=== PATIENT | female | born 1975 | race Caucasian/White ===

== ENCOUNTER 2017-03-10 11:28 | Emergency (ER) | payer MEDICAID ==
[2017-03-10 11:34] VITALS: BP 116/80; PULSE 89; RESP 16; TEMP 98; O2SAT 100
[2017-03-10 11:35] VITALS: BMI 34.5
--- NOTE | 2017-03-10 12:06 | ED PDOC ---
HPI: Female Pain Time Seen by Provider: 03/10/17 11:50 Chief Complaint (Nursing): Female Genitourinary Chief Complaint (Provider): vaginitis History Per: Patient (42 y/o female IDDM here with vaginal discharge/itching associated with dysuria today. Patient deneis any abdominal pain/back pain/ vomiting.) Past Medical History Reviewed: Historical Data, Nursing Documentation, Vital Signs Vital Signs: Last Vital Signs Temp 98.0 F 03/10/17 11:34 Pulse 89 03/10/17 11:34 Resp 16 03/10/17 11:34 BP 116/80 03/10/17 11:34 Pulse Ox 100 03/10/17 11:34 - Medical History PMH: Diabetes - Family History Family History: States: No Known Family Hx - Home Medications Home Medications: Ambulatory Orders Medication Instructions Recorded Fluconazole [Diflucan] 150 mg PO Q72 #3 tab 03/21/15 Fluconazole [Diflucan] 150 mg PO ONCE PRN #1 tab 03/10/17 Miconazole Nitrate [Monistat 3] 1 each VG DAILY #1 kit 03/10/17 - Allergies Allergies/Adverse Reactions: Allergies Allergy/AdvReac Type Severity Reaction Status Date / Time No Known Allergies Allergy Verified 03/21/15 20:08 Review of Systems ROS Statement: Except As Marked, All Systems Reviewed And Found Negative Genitourinary Female: Positive for: Dysuria, Vaginal Discharge Physical Exam - Reviewed Nursing Documentation Reviewed: Yes Vital Signs Reviewed: Yes - Physical Exam Appears: Positive for: Well, Non-toxic, No Acute Distress Head Exam: Positive for: ATRAUMATIC, NORMAL INSPECTION, NORMOCEPHALIC Skin: Positive for: Normal Color, Warm, DRY Eye Exam: Positive for: EOMI, Normal appearance, PERRL ENT: Positive for: Normal ENT Inspection Neck: Positive for: Normal, Painless ROM Cardiovascular/Chest: Positive for: Regular Rate, Rhythm Respiratory: Positive for: CNT, Normal Breath Sounds Gastrointestinal/Abdominal: Positive for: Normal Exam, Bowel Sounds, Soft Pelvic Exam: Positive for: Discharge (moderate thick whitich vaginal discharge. Cervix wnl; ). Negative for: Tender Adnexa Back: Positive for: Normal Inspection Extremity: Positive for: Normal ROM Neurologic/Psych: Positive for: Alert, Oriented - Laboratory Results Urine POC: Negative - ECG O2 Sat by Pulse Oximetry: 100 - Progress ED Course And Treament: Accrupert 195 GC sent Disposition - Clinical Impression Clinical Impression: Yeast infection - Patient ED Disposition Is Patient to be Admitted: No - Disposition Disposition: Routine/Home Disposition Time: 13:41 Condition: FAIR Prescriptions: Fluconazole [Diflucan] 150 mg PO ONCE PRN #1 tab PRN Reason: Itching / Pruritus Miconazole Nitrate [Monistat 3] 1 each VG DAILY #1 kit Instructions: Vulvovaginal Candidiasis (ED) Forms: [employer] (Libyan)
[2017-03-10 13:29] LABS: RBC URINE 1 /hpf (0-3); URINE BILIRUBIN NEGATIVE (NEGATIVE); URINE BLOOD NEGATIVE (NEGATIVE); URINE COLOR STRAW (YELLOW); URINE GLUCOSE (UA) >=500 mg/dL (Normal); URINE KETONE NEGATIVE (NEGATIVE); URINE LEUKOCYTE ESTERASE TRACE Leu/uL (Negative); URINE PROTEIN NEGATIVE (NEGATIVE); URINE UROBILINOGEN 0.2-1.0 mg/dL (0.2-1.0)
[2017-03-10 13:32] LABS: URINE BACTERIA FEW (<OCC); WBC URINE 6 /hpf (0-5)
== END 2017-03-10 13:43 | disposition home or self-care (01) ==
LOC: H.ER 11:28
DX: B37.9 Candidiasis, unspecified (principal)

== ENCOUNTER 2018-01-10 18:17 | Emergency (ER) | payer MEDICAID ==
[2018-01-10 18:17] VITALS: BMI 34.5
[2018-01-10 18:29] VITALS: O2SAT 97
--- NOTE | 2018-01-10 19:38 | ED PDOC ---
HPI: Chest Pain Time Seen by Provider: 01/10/18 19:16 Chief Complaint (Nursing): Chest Pain Chief Complaint (Provider): Chest Pain History Per: Patient History/Exam Limitations: no limitations Onset/Duration Of Symptoms: Hrs Current Symptoms Are (Timing): Still Present (slightly improved) Quality: Pressure Additional Complaint(s): Caridad Dorsey is a 42 year old female with a past medical history of diabetes who is presenting to the ED for evaluation of difficulty breathing with associated chest pressure and palpitations onset a few hours ago. Patient states that she has been feeling some improvement in symptoms upon arrival to the ED and reports that she checked her sugar at 10:30 this morning and it was 245. She stats that she taking both pills and injections for her diabetes and last visited her PMD in August. Patient denies any recent travel, leg pain or swelling, calf pain/swelling, fevers, nausea, and vomiting. PMD: Alecia Lopez Past Medical History Reviewed: Historical Data, Nursing Documentation, Vital Signs Vital Signs: Last Vital Signs Temp 100.0 F H 01/10/18 18:27 Pulse 87 01/10/18 19:42 Resp 16 01/10/18 18:27 BP 112/80 01/10/18 18:27 Pulse Ox 97 01/10/18 19:42 - Medical History PMH: Diabetes - Surgical History Surgical History: No Surg Hx - Family History Family History: States: Unknown Family Hx - Social History Current smoker - smoking cessation education provided: No Alcohol: None Drugs: Denies - Home Medications Home Medications: Ambulatory Orders Medication Instructions Recorded Fluconazole [Diflucan] 150 mg PO Q72 #3 tab 03/21/15 Fluconazole [Diflucan] 150 mg PO ONCE PRN #1 tab 03/10/17 Miconazole Nitrate [Monistat 3] 1 each VG DAILY #1 kit 03/10/17 - Allergies Allergies/Adverse Reactions: Allergies Allergy/AdvReac Type Severity Reaction Status Date / Time No Known Allergies Allergy Verified 01/10/18 18:27 LALO Risk Score for UA/NSTEMI - LALO Risk Score Age > 64: NO 3 or more CAD Risk Factors: NO Known CAD (Stenosis greater than 50%): NO Aspirin use in past 7 days: NO Severe Angina: NO EKG ST changes greater than 0.5mm: NO Positive Cardiac Marker: NO LALO Score: 0 Risk %: 5% Wells Criteria for PE - Wells Criteria for Pulmonary Embolism Clinical Signs and Symptoms of DVT: No P.E is #1 Diagnosis, or Equally Likely: No Heart Rate >100: No Immobilization at least 3 days;Surgery previous 4 weeks: No Previous, objectively diagnosed PE or DVT: No Hemoptysis: No Malignancy w/treatment within 6 months, or palliative: No Total Score: 0 Review of Systems ROS Statement: Except As Marked, All Systems Reviewed And Found Negative Constitutional: Negative for: Fever Cardiovascular: Positive for: Chest Pain (pressure), Palpitations Respiratory: Positive for: Other (difficulty breathing) Gastrointestinal: Negative for: Nausea, Vomiting Musculoskeletal: Negative for: Leg Pain, Other (calf pain, swelling) Physical Exam - Reviewed Nursing Documentation Reviewed: Yes Vital Signs Reviewed: Yes - Physical Exam Appears: Positive for: Non-toxic, No Acute Distress Head Exam: Positive for: ATRAUMATIC, NORMAL INSPECTION, NORMOCEPHALIC Skin: Positive for: Normal Color, Warm, DRY Eye Exam: Positive for: EOMI, Normal appearance, PERRL ENT: Positive for: Normal ENT Inspection Neck: Positive for: Normal, Painless ROM Cardiovascular/Chest: Positive for: Regular Rate, Rhythm. Negative for: Murmur Respiratory: Positive for: Normal Breath Sounds. Negative for: Respiratory Distress Gastrointestinal/Abdominal: Positive for: Normal Exam, Soft. Negative for: Tenderness Back: Positive for: Normal Inspection. Negative for: L CVA Tenderness, R CVA Tenderness Extremity: Positive for: Normal ROM. Negative for: Pedal Edema, Calf Tenderness , Deformity, Swelling Neurologic/Psych: Positive for: Alert, Oriented. Negative for: Motor/Sensory Deficits - Laboratory Results Result Diagrams: 01/10/18 20:19 01/10/18 20:19 - ECG ECG Rhythm: Positive for: Normal QRS, Normal ST Segment, Sinus Rhythm Rate: 87 O2 Sat by Pulse Oximetry: 97 (RA) Pulse Ox Interpretation: Normal Medical Decision Making Medical Decision Making: Time: 19:38 Plan: --CMP --Troponin --CBC 23:15 --Upon reevaluation, patient reports an improvement in symptoms and is stable. She will be discharged home. Follow up with PMD in 1-2 days. Scribe Attestation: Documented by Catherine Noel, acting as a scribe for Messi Wood MD. Provider Scribe Attestation: All medical record entries made by the Scribe were at my direction and personally dictated by me. I have reviewed the chart and agree that the record accurately reflects my personal performance of the history, physical exam, medical decision making, and the department course for this patient. I have also personally directed, reviewed, and agree with the discharge instructions and disposition. Disposition - Clinical Impression Clinical Impression: Palpitations - Patient ED Disposition Is Patient to be Admitted: No - Disposition Disposition: Routine/Home Disposition Time: 23:15 Condition: IMPROVED Additional Instructions: follow up with your primary doctor dr lpoez in 1-2 days return to the ED with any worsening or concerning symptoms Instructions: Palpitations (DC) Forms: [employer] (Albanian)
[2018-01-10 20:45] LABS: BASO # 0.1 K/uL (0.0-0.2); BASO % 1.2 % (0.0-2.0); EOS # 0.2 K/uL (0.0-0.7); EOS % 2.1 % (0.0-4.0); HEMOGLOBIN 13.1 g/dL (12.0-16.0); LYMPH # 3.2 K/uL (1.0-4.3); LYMPH % 36.6 % (20.0-40.0); MEAN CELL VOLUME 82.5 fl (81.0-99.0); MEAN CORPUSCULAR HEMOGLOBIN 27.4 pg (27.0-31.0); MEAN CORPUSCULAR HGB CONC 33.2 g/dL (33.0-37.0); MEAN PLATELET VOLUME 8.6 fl (7.2-11.7); MONO # 0.7 K/uL (0.0-0.8); MONO % 7.8 % (0.0-10.0); NEUT # 4.5 K/uL (1.8-7.0); NEUT % 52.3 % (50.0-75.0); NRBC % 0.2 % (0.0-0.0); RBC 4.8 Mil/uL (3.80-5.20); RED CELL DISTRIBUTION WIDTH 14.4 % (11.5-14.5); WHITE BLOOD COUNT 8.6 K/uL (4.8-10.8)
[2018-01-10 21:03] LABS: ALB/GLOB RATIO 1.2 (1.0-2.1); ALT/SGPT 28 U/L (9-52); AST/SGOT 22 U/L (14-36); BLOOD UREA NITROGEN 12 mg/dl (7-17); CALCIUM 9.1 mg/dL (8.4-10.2); GFR NON-AFRICAN AMERICAN > 60
[2018-01-11 00:50] VITALS: BP 114/68; PULSE 89; RESP 18; TEMP 97.9
--- NOTE | 2018-01-11 11:27 | RAD ---
Date of service: 01/10/2018 HISTORY: chest pain COMPARISON: No prior. TECHNIQUE: Chest PA and lateral FINDINGS: LUNGS: No active pulmonary disease. PLEURA: No significant pleural effusion identified. No pneumothorax apparent. CARDIOVASCULAR: Normal. OSSEOUS STRUCTURES: No significant abnormalities. VISUALIZED UPPER ABDOMEN: Normal. OTHER FINDINGS: None. IMPRESSION: No active disease.
== END 2018-01-10 23:28 | disposition home or self-care (01) ==
LOC: H.ER 18:17
DX: R00.2 Palpitations (principal); E11.9 Type 2 diabetes mellitus without complications